=== PATIENT | male | born 1965 | race Caucasian/White ===

== ENCOUNTER 2016-12-11 08:42 | Emergency (ER) | payer OTHER ==
[~2016-12-11] VITALS: Ht 172.7 cm; Wt 68.2 kg
[~2016-12-11 08:42] MED LIST: ADDERALL12.5 MG PO; ASPIR-LOW81 MG PO; ATARAX,VISTARIL25 MG PO; ATARAX,VISTARIL50 MG PO; ATARAX10 MG PO; ATIVAN0.5 MG PO; ATIVAN1 MG PO; BENADRYL ALLERG25 MG PO; CARAFATE1 GM PO; CLONAZEPAM2 M1 PO; KEFLEX500 MG PO; KLONOPIN0.125 MG; LEXAPRO10 MG PO; LIBRIUM10 MG PO; LIBRIUM25 MG PO; LORAZEPAM1 MG PO; MOTRIN800 MG PO; NARCAN4 MG NS; NOHOMEMEDS; NORCO 7.5/321 TABLET PO; PERCOCET 5/31 TABLET PO; REMERON15 MG PO; THIAMINE HCL100 MG PO; TRAZODONE HCL100 MG PO; TRAZODONE HCL50 MG PO; ULTRAM50 MG PO; VALIUM5 MG PO; VIBRAMYCIN100 MG PO; XANAX XR2 MG PO; XANAX1 MG PO; ZITHROMAX Z-PA250 MG PO
[2016-12-11] MEDS ORDERED: VICODIN 5-3001 EACH PO (10:53)
[2016-12-11 11:06] VITALS: BP 126/100
== END 2016-12-11 11:15 | disposition home or self-care (01) ==
LOC: EME 08:42
PROC: 2W3SX1Z Immobilization of Right Foot using Splint (ICD-10-PCS; principal; 2016-12-11)
DX: S92.314A Nondisplaced fracture of first metatarsal bone, right foot, initial encounter for closed fracture (principal); S90.31XA Contusion of right foot, initial encounter; F17.200 Nicotine dependence, unspecified, uncomplicated; W23.0XXA Caught, crushed, jammed, or pinched between moving objects, initial encounter
CPT/HCPCS: 73630; 99281; 99283

== ENCOUNTER 2017-03-04 11:58 | Emergency (ER) | payer OTHER ==
[~2017-03-04] VITALS: Ht 172.7 cm; Wt 66.8 kg
[~2017-03-04 11:58] MED LIST changes: +VICODIN 5-3001 EACH PO
[2017-03-04 12:10] VITALS: BP 129/89
== END 2017-03-04 13:15 | disposition home or self-care (01) ==
LOC: EME → EDBD 12:14 → EME 12:14
DX: F10.10 Alcohol abuse, uncomplicated (principal); F41.9 Anxiety disorder, unspecified; I25.2 Old myocardial infarction; F17.200 Nicotine dependence, unspecified, uncomplicated
CPT/HCPCS: 99281; 99284

== ENCOUNTER 2017-04-11 23:04 | Emergency (ER) | payer OTHER ==
[~2017-04-11] VITALS: Ht 172.7 cm; Wt 68.3 kg
[2017-04-12 01:03] LABS: HEMATOCRIT 37.6 % (38.0-50.0); MCH 32.8 PG (29.0-34.0); MCHC 33.8 G/DL (30.0-36.0); MCV 97.2 FL (86-99); MEAN PLAT.VOLUME 8.8 uM^3 (9.0-12.4); PLATELET COUNT 192 K/uL (156-360); RBC DIS.WIDTH-CV 13.9 % (11.8-14.6); RBC DIS.WIDTH-SD 49.3 % (39-53); RED BLOOD COUNT 3.87 M/uL (4.00-5.50); WHITE BLOOD COUNT 4.5 K/uL (4.1-10.2)
[2017-04-12 01:21] LABS: CHLORIDE 113 mEq/L (99-109); POTASSIUM 3.7 mEq/L (3.7-5.4); SODIUM 145 mEq/L (136-147)
[2017-04-12 01:23] LABS: GLUCOSE 91 mg/dL (70-99)
[2017-04-12 01:25] LABS: ANION GAP 10 MEQ/L (2-14)
[2017-04-12 01:26] LABS: SERUM ETHYL ALCOHOL 269 mg/dL
[2017-04-12 01:27] LABS: GFR ESTIMATE (CALCULATED) > 59 mL/min/
[2017-04-12 01:28] LABS: UREA NITROGEN (BUN) 11 mg/dL (9-23)
[2017-04-12 07:28] LABS: ADD MEDTOX COMMENT Y; AMPHETAMINE NEGATIVE (500 ng/mL); BARBITURATES NEGATIVE (200 ng/mL); BENZODIAZEPINES PRESUMPTIVE POSITIVE (150 ng/mL); COCAINE NEGATIVE (150 ng/mL); INTERNAL CONTROLS VALID? YES; METHADONE NEGATIVE (200 ng/mL); METHAMPHETAMINE NEGATIVE (500 ng/mL); OPIATES (MORPHINE) NEGATIVE (100 ng/mL); OXYCODONE NEGATIVE (100 ng/mL); PHENCYCLIDINE NEGATIVE (25 ng/mL); PROPOXYPHENE NEGATIVE (300 ng/mL); THC CANNABINOIDS NEGATIVE (50 ng/mL); TRICYCLIC ANTIDEPRESSANTS NEGATIVE (300 ng/mL)
[2017-04-12 07:44] VITALS: BP 124/78
[2017-04-12 08:08] LABS: BENZODIAZEPINES QUANT VALUE 0 NG/ML; BENZODIAZEPINES, URINE SCREEN Negative (200 ng/mL)
== END 2017-04-12 07:45 | disposition home or self-care (01) ==
LOC: EME 23:04
PROVIDERS: Emergency Medicine
DX: F10.14 Alcohol abuse with alcohol-induced mood disorder (principal); F10.129 Alcohol abuse with intoxication, unspecified; Y90.8 Blood alcohol level of 240 mg/100 ml or more; R45.850 Homicidal ideations; F17.200 Nicotine dependence, unspecified, uncomplicated
CPT/HCPCS: 80048; 84999; 85027; 90837; 99281; 99285; G0480

== ENCOUNTER 2017-08-07 19:50 | Emergency (ER) | payer OTHER ==
[~2017-08-07] VITALS: Ht 180.3 cm; Wt 71.4 kg
[2017-08-08 05:48] VITALS: BP 113/72
== END 2017-08-08 05:48 | disposition home or self-care (01) ==
LOC: EME 19:50
DX: F10.129 Alcohol abuse with intoxication, unspecified (principal); I25.2 Old myocardial infarction; F17.200 Nicotine dependence, unspecified, uncomplicated; Z88.5 Allergy status to narcotic agent; Z88.6 Allergy status to analgesic agent
CPT/HCPCS: 99281; 99284

== ENCOUNTER 2017-11-04 13:14 | Emergency (ER) | payer OTHER ==
[~2017-11-04] VITALS: Ht 172.7 cm; Wt 85.0 kg
[2017-11-04 13:16] VITALS: BP 129/84
== END 2017-11-04 19:00 | disposition left against medical advice (07) ==
LOC: EME → EDBD 13:14 → EME 13:14
DX: S01.81XA Laceration without foreign body of other part of head, initial encounter (principal); F10.129 Alcohol abuse with intoxication, unspecified; W18.30XA Fall on same level, unspecified, initial encounter; Y92.480 Sidewalk as the place of occurrence of the external cause; I25.2 Old myocardial infarction; F17.200 Nicotine dependence, unspecified, uncomplicated; F41.9 Anxiety disorder, unspecified; Z88.5 Allergy status to narcotic agent
CPT/HCPCS: 70450; 72125; 99281; 99285

== ENCOUNTER 2018-02-23 12:07 | Emergency (ER) | payer OTHER ==
[~2018-02-23] VITALS: Ht 172.7 cm; Wt 75.0 kg
[2018-02-23 12:36] LABS: BASOPHIL (%) 1.4 % (0-1); BASOPHIL COUNT 0.1 K/uL (0-0.1); EOSINOPHIL (%) 0.2 % (0-5); HEMATOCRIT 37.2 % (38.0-50.0); HEMOGLOBIN 13.3 G/DL (12.5-16.6); IMMATURE GRANULOCYTE (%) 0.2 % (0.0-0.7); LYMPHOCYTE (%) 30.5 % (15-42); LYMPHOCYTE COUNT 1.8 K/uL (1.0-2.8); MCH 33.9 PG (29.0-34.0); MCHC 35.8 G/DL (30.0-36.0); MCV 94.9 FL (86-99); MONOCYTE (%) 4.5 % (3-12); MONOCYTE COUNT 0.3 K/uL (0-0.8); NEUTROPHIL (%) 63.2 % (45-76); NEUTROPHIL COUNT 3.7 K/uL (1.8-6.4); PLATELET COUNT 182 K/uL (156-360); RBC DIS.WIDTH-CV 13.8 % (11.8-14.6); RBC DIS.WIDTH-SD 47.9 % (39-53); RED BLOOD COUNT 3.92 M/uL (4.00-5.50); WHITE BLOOD COUNT 5.8 K/uL (4.1-10.2)
[2018-02-23 12:45] LABS: CHLORIDE 105 mEq/L (99-109); POTASSIUM 3.7 mEq/L (3.7-5.4); SODIUM 142 mEq/L (136-147)
[2018-02-23 12:47] LABS: GLUCOSE 128 mg/dL (70-99)
[2018-02-23 12:50] LABS: SERUM ETHYL ALCOHOL 391 mg/dL
[2018-02-23 12:51] LABS: CREATININE 0.8 mg/dL (0.6-1.3); GFR ESTIMATE (CALCULATED) > 59 mL/min/ (58.99-99999)
[2018-02-23 12:52] LABS: UREA NITROGEN (BUN) 11 mg/dL (9-23)
[2018-02-23 12:56] LABS: TROP-I INTERPRETATION NEGATIVE; TROPONIN-I 0.01 ng/mL (0.0-0.30)
[2018-02-23 13:33] LABS: AMPHETAMINE NEGATIVE (500 ng/mL); BARBITURATES NEGATIVE (200 ng/mL); BENZODIAZEPINES NEGATIVE (150 ng/mL); BUPRENORPHINE NEGATIVE (10 ng/mL); COCAINE NEGATIVE (150 ng/mL); METHADONE NEGATIVE (200 ng/mL); METHAMPHETAMINE NEGATIVE (500 ng/mL); OPIATES (MORPHINE) NEGATIVE (100 ng/mL); OXYCODONE NEGATIVE (100 ng/mL); PHENCYCLIDINE NEGATIVE (25 ng/mL); PROPOXYPHENE NEGATIVE (300 ng/mL); THC CANNABINOIDS NEGATIVE (50 ng/mL); TRICYCLIC ANTIDEPRESSANTS NEGATIVE (300 ng/mL)
[2018-02-23] MEDS ORDERED: AUGMENTIN875 MG PO (14:50)
[2018-02-23 15:43] VITALS: BP 112/71
== END 2018-02-23 15:49 | disposition left against medical advice (07) ==
LOC: EME 12:07
PROVIDERS: Emergency Medicine
DX: J18.9 Pneumonia, unspecified organism (principal); F41.9 Anxiety disorder, unspecified; F10.129 Alcohol abuse with intoxication, unspecified; Y90.8 Blood alcohol level of 240 mg/100 ml or more; R91.8 Other nonspecific abnormal finding of lung field; R94.31 Abnormal electrocardiogram [ECG] [EKG]; F17.200 Nicotine dependence, unspecified, uncomplicated; I25.2 Old myocardial infarction; Z88.5 Allergy status to narcotic agent; Z88.8 Allergy status to other drugs, medicaments and biological substances
CPT/HCPCS: 71045; 71250; 80048; 84484; 85025; 93005; 99281; 99285; G0480

== ENCOUNTER 2018-03-26 13:51 | Emergency (ER) | payer OTHER ==
[~2018-03-26] VITALS: Ht 167.6 cm; Wt 70.0 kg
[~2018-03-26 13:51] MED LIST changes: +AUGMENTIN875 MG PO
[2018-03-26 13:58] VITALS: BP 145/98
[2018-03-26 14:44] LABS: BASOPHIL (%) 1.2 % (0-1); BASOPHIL COUNT 0.1 K/uL (0-0.1); EOSINOPHIL (%) 1.7 % (0-5); EOSINOPHIL COUNT 0.1 K/uL (0-0.3); HEMATOCRIT 40.9 % (38.0-50.0); HEMOGLOBIN 14.3 G/DL (12.5-16.6); IMMATURE GRANULOCYTE (%) 0.3 % (0.0-0.7); LYMPHOCYTE (%) 38.5 % (15-42); LYMPHOCYTE COUNT 2.2 K/uL (1.0-2.8); MCH 33.3 PG (29.0-34.0); MCV 95.3 FL (86-99); MONOCYTE (%) 5.9 % (3-12); MONOCYTE COUNT 0.3 K/uL (0-0.8); NEUTROPHIL (%) 52.4 % (45-76); PLATELET COUNT 180 K/uL (156-360); RBC DIS.WIDTH-CV 13.3 % (11.8-14.6); RBC DIS.WIDTH-SD 47.1 % (39-53); RED BLOOD COUNT 4.29 M/uL (4.00-5.50); WHITE BLOOD COUNT 5.8 K/uL (4.1-10.2)
[2018-03-26 14:52] LABS: CHLORIDE 107 mEq/L (99-109); POTASSIUM 4.4 mEq/L (3.7-5.4); SODIUM 145 mEq/L (136-147)
[2018-03-26 14:54] LABS: GLUCOSE 86 mg/dL (70-99)
[2018-03-26 14:57] LABS: SERUM ETHYL ALCOHOL 334 mg/dL
[2018-03-26 14:58] LABS: CREATININE 0.8 mg/dL (0.6-1.3); GFR ESTIMATE (CALCULATED) > 59 mL/min/ (58.99-99999)
[2018-03-26 14:59] LABS: UREA NITROGEN (BUN) 13 mg/dL (9-23)
[2018-03-26 15:05] LABS: TROP-I INTERPRETATION NEGATIVE; TROPONIN-I < 0.01 ng/mL (0.0-0.30)
== END 2018-03-26 15:38 ==
LOC: EME 13:51
PROVIDERS: Emergency Medicine
DX: F10.10 Alcohol abuse, uncomplicated (principal); F32.9 Major depressive disorder, single episode, unspecified; Y90.8 Blood alcohol level of 240 mg/100 ml or more; F17.200 Nicotine dependence, unspecified, uncomplicated; I25.2 Old myocardial infarction; F41.9 Anxiety disorder, unspecified; Z88.5 Allergy status to narcotic agent
CPT/HCPCS: 80048; 84484; 85025; 93005; 99281; 99283; G0480; J3410

== ENCOUNTER 2018-04-29 21:31 | Emergency (ER) | payer OTHER ==
[~2018-04-29] VITALS: Ht 172.7 cm; Wt 68.3 kg
[2018-04-29 22:11] LABS: HEMATOCRIT 36.8 % (38.0-50.0); HEMOGLOBIN 13.1 G/DL (12.5-16.6); MCH 33.5 PG (29.0-34.0); MCHC 35.6 G/DL (30.0-36.0); MCV 94.1 FL (86-99); PLATELET COUNT 154 K/uL (156-360); RBC DIS.WIDTH-CV 14.5 % (11.8-14.6); RBC DIS.WIDTH-SD 49.8 % (39-53); RED BLOOD COUNT 3.91 M/uL (4.00-5.50); WHITE BLOOD COUNT 6.9 K/uL (4.1-10.2)
[2018-04-29 22:41] LABS: CHLORIDE 106 MEQ/L (99-109); SODIUM 140 MEQ/L (136-147); TOTAL BILIRUBIN 0.3 MG/DL (0.0-1.0)
[2018-04-29 22:47] LABS: ALKALINE PHOSPHATASE 54 IU/L (3-129); ALT (GPT) 66 IU/L (3-49); AST (GOT) 111 IU/L (2-34); CREATININE 0.8 MG/DL (0.6-1.3); GFR ESTIMATE (CALCULATED) > 59 mL/min/ (58.99-99999); GLUCOSE 107 mg/dL (70-99); LIPASE 22 U/L (1.0-51.0); TOTAL PROTEIN 6.6 G/DL (6.4-8.3); UREA NITROGEN (BUN) 11 mg/dL (9-23)
[2018-04-29 23:34] LABS: APPEARANCE CLEAR ((CLEAR)); BILIRUBIN NEGATIVE; BLOOD NEGATIVE; COLOR YELLOW ((YELLOW)); GLUCOSE (STRIP) NEGATIVE; KETONES NEGATIVE; LEUKOCYTES NEGATIVE; NITRITE NEGATIVE; PROTEIN (STRIP) NEGATIVE; SPECIFIC GRAVITY 1.023 (1.000-1.030); UCUL ADDED? NO; UROBILINOGEN 0.2 MG/DL (0.2-1.0)
[2018-04-30] MEDS ORDERED: ZANTAC150 MG PO (00:30)
[2018-04-30 00:40] VITALS: BP 146/90
== END 2018-04-30 00:40 | disposition home or self-care (01) ==
LOC: EME 21:31
DX: K70.10 Alcoholic hepatitis without ascites (principal); F41.9 Anxiety disorder, unspecified; I25.2 Old myocardial infarction; F17.200 Nicotine dependence, unspecified, uncomplicated; Z88.5 Allergy status to narcotic agent; Z88.8 Allergy status to other drugs, medicaments and biological substances
CPT/HCPCS: 80053; 81003; 83690; 85027; 99281; 99284; J3010